=== PATIENT | male | born 1950 | race Caucasian/White ===

== ENCOUNTER 2022-10-09 14:24 | Day surgery (SDC) | payer MEDICARE ==
[2022-10-03 10:09] LABS: BASOPHILS # (AUTO) 0.1 X10'3 (0-0.2); EOSINOPHILS # (AUTO) 0.2 X10'3 (0-0.9); EOSINOPHILS % (AUTO) 3.2 % (0-6); HEMATOCRIT 37.4 % (42.0-52.0); HEMOGLOBIN 12.5 g/dl (14.0-17.9); LYMPHOCYTES # (AUTO) 1.1 X10'3 (1.1-4.8); MEAN CORPUSCULAR HEMOGLOBIN 29.3 PG (27.0-31.0); MEAN CORPUSCULAR HGB CONC 33.4 g/dL (33.0-36.5); MEAN CORPUSCULAR VOLUME 87.9 FL (78-98); MONOCYTES # (AUTO) 0.7 X10'3 (0-0.9); MONOCYTES % (AUTO) 10.4 % (2-12); NEUTROPHILS # (AUTO) 4.2 X10'3 (1.8-7.7); NEUTROPHILS % (AUTO) 67.4 % (42-75); PLATELET COUNT 232 X10'3 (140-440); RED BLOOD COUNT 4.25 X10'6 (4.70-6.10); RED CELL DISTRIBUTION WIDTH 16.3 % (11.5-14.5); WHITE BLOOD COUNT 6.2 X10'3 (4.5-11.0)
[2022-10-03 10:19] LABS: APTT 30 SECONDS (22-32)
[2022-10-03 10:21] LABS: ALBUMIN 3.8 G/DL (3.4-5.0); ANION GAP 12 (8-16); BLOOD UREA NITROGEN 22 MG/DL (7-18); BUN/CREATININE RATIO 27.2 (5.4-32.0); CALCIUM 9.4 MG/DL (8.5-10.1); CHLORIDE 106 MMOL/L (99-107); CHOL/HDL RATIO 2.6 (0.00-4.99); CHOLESTEROL 138 MG/DL (0-200); CREATININE 0.81 MG/DL (0.60-1.10); GLUCOSE 191 MG/DL (70-104); HDL CHOLESTEROL 54 MG/DL (35-60); LDL CHOLESTEROL 68 MG/DL (50-100); POTASSIUM 4.5 MMOL/L (3.5-5.1); SODIUM 142 MMOL/L (135-145); TOTAL CARBON DIOXIDE 24.3 MMOL/L (24-32); TRIGLYCERIDES 110 MG/DL (20-135); eGFR > 90 ML/MIN
[~2022-10-09] VITALS: Ht 190.5 cm; Wt 124.8 kg
[2022-10-09] VITALS (7 sets, daily range): BP systolic 118–155; BP diastolic 61–83
[2022-10-09] MEDS ORDERED: SEMA2PEN SQ (14:59)
[2022-10-09] MEDS ORDERED: GLIM4TAB7 PO (14:59)
[2022-10-09] MEDS ORDERED: ASPI81TA52 PO (14:59)
[2022-10-09] MEDS ORDERED: LOSA100T57 PO (14:59)
[2022-10-09] MEDS ORDERED: MULT-1085 PO (14:59)
[2022-10-09] MEDS ORDERED: METO-395 PO (14:59)
[2022-10-09] MEDS ORDERED: LEVO75TA7 PO (14:59)
[2022-10-09] MEDS ORDERED: METF-438 PO (14:59)
[2022-10-09] MEDS ORDERED: INSU100I27 SQ (14:59)
[2022-10-09] MEDS ORDERED: ROSU20TA31 PO (14:59)
[2022-10-09] MEDS ORDERED: diphenhydrAMINE 25mg capsule PO PRN (15:40)
[2022-10-09] MEDS ORDERED: normal saline 1,000 ML IV SCH (15:40)
[2022-10-09] MEDS ORDERED: LORazepam 0.5 MG tablet PO PRN (15:40)
[2022-10-09] MEDS ORDERED: heparin 1,000unit/ml 10ml vial 10 ML ONE (16:03)
[2022-10-09] MEDS ORDERED: verapamil 2.5 mg/ml inj IV ONE (16:03)
[2022-10-09] MEDS ORDERED: iohexol 350MG/ML 100ml bottle IV ONE (16:03)
[2022-10-09] MEDS ORDERED: LIDOcaine 1% (10mg/ml) 2ml vial ONE (16:03)
[2022-10-09] MEDS ORDERED: midazolam 1 mg/ML 2ml injection ONE (16:03)
[2022-10-09] MEDS ORDERED: fentaNYL/PF 50MCG/1 ML 2ML syringe ONE (16:03)
[2022-10-09] MEDS ORDERED: nitroGLYCERIN-Tridil 50MG/D5W 250 ML IV ONE (16:04)
[2022-10-09] MEDS ORDERED: HYDROcodone/acetaminophen 5mg/325mg tablet PO PRN (19:35)
[2022-10-09] MEDS ORDERED: OXAZEpam 15mg capsule PO PRN (19:35)
[2022-10-09] MEDS ORDERED: HYDROcodone/acetaminophen 10/325mg tab PO PRN (19:35)
[2022-10-09] MEDS ORDERED: proCHLORperazine 10 MG/2 ml inj IV PRN (19:35)
[2022-10-09] MEDS ORDERED: ondansetron/PF 4mg/2ml inj IV PRN (19:35)
== END 2022-10-09 20:30 | disposition home or self-care (01) ==
LOC: SSTAY O 14:24
PROVIDERS: ATTEND Student in an Organized Health Care Education/Training Program
DX: R94.39 Abnormal result of other cardiovascular function study (principal); I25.10 Atherosclerotic heart disease of native coronary artery without angina pectoris; G47.33 Obstructive sleep apnea (adult) (pediatric); I25.2 Old myocardial infarction; E11.9 Type 2 diabetes mellitus without complications; I10 Essential (primary) hypertension; I45.10 Unspecified right bundle-branch block; I35.0 Nonrheumatic aortic (valve) stenosis; Z79.82 Long term (current) use of aspirin; Z79.899 Other long term (current) drug therapy; Z79.4 Long term (current) use of insulin; Z86.16 Personal history of COVID-19; Z88.2 Allergy status to sulfonamides; Z88.5 Allergy status to narcotic agent; Z79.01 Long term (current) use of anticoagulants
CPT/HCPCS: 36415; 80048; 80061; 82948; 85025; 85610; 85730; 93005; 93458; 99152; A6258; C1769; C1894; J1644; J2250; J3010; J3490; J7030; Q0163; Q9967; A4615

== ENCOUNTER 2022-12-17 02:27 | Emergency (ER) | payer MEDICARE ==
[~2022-12-17] VITALS: Ht 190.5 cm; Wt 127.3 kg
[~2022-12-17 02:27] MED LIST: ASPI-1265 PO; GLIM4TAB7 PO; HYDR-3972 PO; INSU100I27 SQ; LEVO75TA7 PO; METF-438 PO; METO-395 PO; ROSU20TA31 PO; SEMA2PEN SQ; VITAMIN C PO; VITAMIN D3 PO
[2022-12-17] MEDS ORDERED: iohexol 350MG/ML 100ml bottle IV ONE (02:44)
[2022-12-17 03:00] LABS: BASOPHILS # (AUTO) 0.1 X10'3 (0-0.2); BASOPHILS % (AUTO) 0.8 % (0-1); EOSINOPHILS # (AUTO) 0.5 X10'3 (0-0.9); EOSINOPHILS % (AUTO) 6.5 % (0-6); HEMATOCRIT 30.5 % (42.0-52.0); HEMOGLOBIN 10.3 g/dl (14.0-17.9); LYMPHOCYTES # (AUTO) 1.1 X10'3 (1.1-4.8); LYMPHOCYTES % (AUTO) 14.3 % (21-51); MEAN CORPUSCULAR HEMOGLOBIN 29.7 PG (27.0-31.0); MEAN CORPUSCULAR HGB CONC 33.9 g/dL (33.0-36.5); MEAN CORPUSCULAR VOLUME 87.6 FL (78-98); MONOCYTES # (AUTO) 0.8 X10'3 (0-0.9); MONOCYTES % (AUTO) 10.6 % (2-12); NEUTROPHILS # (AUTO) 5.1 X10'3 (1.8-7.7); NEUTROPHILS % (AUTO) 67.8 % (42-75); PLATELET COUNT 248 X10'3 (140-440); RED BLOOD COUNT 3.48 X10'6 (4.70-6.10); RED CELL DISTRIBUTION WIDTH 14.1 % (11.5-14.5); WHITE BLOOD COUNT 7.6 X10'3 (4.5-11.0)
[2022-12-17 03:18] LABS: ALANINE AMINOTRANSFERASE 33 U/L (12-78); ALBUMIN/GLOBULIN RATIO 0.8 (1.1-1.5); ALKALINE PHOSPHATASE 63 IU/L (46-116); ANION GAP 11 (8-16); ASPARTATE AMINO TRANSFERASE 17 U/L (10-37); BILIRUBIN,TOTAL 0.6 MG/DL (0.1-1.0); BLOOD UREA NITROGEN 26 MG/DL (7-18); BUN/CREATININE RATIO 23.2 (10.0-20.0); CALCIUM 8.7 MG/DL (8.5-10.1); CHLORIDE 104 MMOL/L (99-107); CREATININE 1.12 MG/DL (0.60-1.10); GLUCOSE 90 MG/DL (70-104); POTASSIUM 3.8 MMOL/L (3.5-5.1); SODIUM 141 MMOL/L (135-145); TOTAL CARBON DIOXIDE 25.8 MMOL/L (24-32); TOTAL PROTEIN 6.8 G/DL (6.4-8.2); eGFR 64 ML/MIN
[2022-12-17 03:24] LABS: MAGNESIUM 2.1 MG/DL (1.5-2.4)
[2022-12-17 06:21] VITALS: BP 146/78
== END 2022-12-17 06:23 | disposition home or self-care (01) ==
LOC: ER 02:27
DX: R06.02 Shortness of breath (principal); I11.9 Hypertensive heart disease without heart failure; E11.9 Type 2 diabetes mellitus without complications; Z88.8 Allergy status to other drugs, medicaments and biological substances; Z88.2 Allergy status to sulfonamides; Z79.899 Other long term (current) drug therapy
CPT/HCPCS: 36415; 71045; 71275; 80053; 83735; 83880; 84145; 84484; 85025; 85610; 93005; 99285; J3490; Q9967

== ENCOUNTER 2022-12-23 06:46 | Day surgery (SDC) | payer MEDICARE ==
[~2022-12-23] VITALS: Ht 190.5 cm; Wt 126.8 kg
[2022-12-23] MEDS ORDERED: LIDOcaine 1%/PF 5ML 10 MG/ML VIAL SQ ONE (07:00)
[2022-12-23 07:05] VITALS: BP 137/61
[2022-12-23] MEDS ORDERED: LOSA100T58 PO (07:07)
[2022-12-23 08:50] VITALS: BP 143/73
[2022-12-23 08:55] VITALS: BP 163/71
[2022-12-23 09:10] VITALS: BP 130/72
[2022-12-23 09:25] VITALS: BP 145/59
[2022-12-23 09:40] VITALS: BP 125/73
== END 2022-12-23 09:50 | disposition home or self-care (01) ==
LOC: SSTAY O 06:46
PROVIDERS: ATTEND Radiology Vascular & Interventional Radiology
DX: J90 Pleural effusion, not elsewhere classified (principal); I25.10 Atherosclerotic heart disease of native coronary artery without angina pectoris; E11.9 Type 2 diabetes mellitus without complications; E78.5 Hyperlipidemia, unspecified; I10 Essential (primary) hypertension; I25.2 Old myocardial infarction; E03.9 Hypothyroidism, unspecified; G47.33 Obstructive sleep apnea (adult) (pediatric); Z95.1 Presence of aortocoronary bypass graft; Z98.890 Other specified postprocedural states; Z88.2 Allergy status to sulfonamides; Z88.8 Allergy status to other drugs, medicaments and biological substances; Z88.5 Allergy status to narcotic agent; Z79.82 Long term (current) use of aspirin; Z79.4 Long term (current) use of insulin; Z79.899 Other long term (current) drug therapy
CPT/HCPCS: 32555; 82948; C1729; J3490

== ENCOUNTER 2022-12-30 12:53 | Outpatient (CLI) | payer MEDICARE ==
[~2022-12-30 12:53] MED LIST changes: -HYDR-3972 PO; +LOSA100T58 PO; -METO-395 PO
== END 2022-12-30 23:59 | disposition home or self-care (01) ==
LOC: CARD DIAG 12:53
PROVIDERS: ATTEND Thoracic Surgery (Cardiothoracic Vascular Surgery)
DX: I08.8 Other rheumatic multiple valve diseases (principal); I31.39 Other pericardial effusion (noninflammatory)
CPT/HCPCS: 93306